=== PATIENT | female | born 1950 | race Caucasian/White ===

== ENCOUNTER 2018-09-26 19:01 | Inpatient (IN) | payer OTHER ==
[~2018-09-26] VITALS: Ht 162.6 cm; Wt 72.1 kg
[2018-09-26 20:04] LABS: Basophils # (auto) 0.1 uL; Basophils % (auto) 0.7 % (0.0-2.0); Eosinophils # (auto) 0 uL; Eosinophils % (auto) 0.5 % (0.0-7.0); Hemoglobin 11.6 g/dL (12.2-16.2); Lymphocytes # (auto) 1.6 uL; Lymphocytes % (auto) 19.2 % (10.0-50.0); Mean Corpuscular Hemoglobin 27.4 pg (28.0-32.0); Mean Corpuscular Hgb Conc. 32.3 g/dL (32.0-36.0); Mean Corpuscular Volume 84.7 fL (80.0-100.0); Monocytes # (auto) 0.9 uL; Monocytes % (auto) 10.9 % (0.0-12.0); Neutrophils # (auto) 5.6 uL; Neutrophils % (auto) 68.7 % (37.0-80.0); Platelet Count (auto) 350 10^3/uL (140-450); Red Blood Cells 4.25 10^6/uL (4.0-5.20); White Blood Cell 8.1 10^3/uL (4.4-10.8)
[2018-09-26 20:17] LABS: Albumin 3.5 g/dL (3.4-5.0); Blood Urea Nitrogen 18 mg/dL (7-18); Calcium 8.6 mg/dL (8.5-10.1); Carbon Dioxide 19 mmol/L (21-32); Chloride 107 mmol/L (98-107); Glucose 94 mg/dL (74-106); Magnesium 2.6 mg/dL (1.6-2.6); Potassium 4.5 mmol/L (3.5-5.1)
[2018-09-26 20:20] LABS: BUN/Creatinine Ratio 13.7; Blood Alcohol < 3.0 mg/dL (0-5); GFR African American 52 mL/min; GFR Non-African American 43 mL/min
[2018-09-26 20:26] LABS: Alanine Aminotransferase 19 U/L (13-56); Alkaline Phosphatase 62 U/L (45-117); Aspartate Aminotransferase 32 U/L (15-37); Bilirubin, Total 0.4 mg/dL (0.2-1.0); Total Protein 7.1 g/dL (6.4-8.2)
[2018-09-26 20:29] LABS: Anion Gap 15 (5-15); Sodium 141 mmol/L (136-145)
[2018-09-26] MEDS ORDERED: SODIUM CHLORIDE 0.9% 1,000 ML IV ONE (22:00)
[2018-09-26 22:30] LABS: Urine Bacteria FEW /hpf (None Seen); Urine Blood Negative /uL (Negative); Urine Mucus FEW (None Seen); Urine Specific Gravity 1.016 (1.001-1.035); Urine WBC 36 /hpf (0 - 5)
[2018-09-26 22:33] LABS: Alcohol, Urine < 3.0 mg/dL (0-5); Amphetamine Screen, Urine NEGATIVE (NEGATIVE); Barbiturate Scree,Urine NEGATIVE (NEGATIVE); Benzodiazephine Screen, Urine NEGATIVE (NEGATIVE); Cannabinoid Screen, Urine NEGATIVE (NEGATIVE); Cocaine Screen, Urine NEGATIVE (NEGATIVE); Opiate Scree,Urine NEGATIVE (NEGATIVE); Phencyclidine Screen, Urine NEGATIVE (NEGATIVE)
[2018-09-27] MEDS ORDERED: TEMAZEPAM 15 MG CAP PO PRN (04:15)
[2018-09-27] MEDS ORDERED: ACETAMINOPHEN 500 MG TAB PO PRN (04:15)
[2018-09-27] MEDS ORDERED: HYDROcodone-ACET 5/325MG TAB PO PRN (04:15)
[2018-09-27] MEDS ORDERED: ONDANSETRON HCL 4 MG/2 ML VIAL IV PRN (04:15)
[2018-09-27] MEDS ORDERED: LORazepam 0.5 MG TAB PO PRN (04:15)
[2018-09-27] MEDS ORDERED: SODIUM CHLORIDE 0.9% 1,000 ML IV ONE (04:15)
[2018-09-27 05:20] VITALS: BP 104/73
--- NOTE | 2018-09-27 05:20 | NUR ---
MS admit from [facility],BUD admitted to tele/MS after SBAR received. Patient oriented to MANOLO WEISS, RN primary RN, room 292 B, and unit policies regarding patient care and visiting hours. Patient confused, A&O to self. Was not able to obtain medical history, current home medication, or husbands contact information. To freely draining, hung below bladder, and free of kinks. Patient is able to follow commands and verbalize understanding. Patient weighed by bedscale and encouraged to call if they need something. All questions and concerns addressed, patient verbalized understanding. Note:
--- NOTE | 2018-09-27 05:30 | NUR ---
IV removal IV to left AC infiltrated and swollen. IV DC'd with clean sterile technique, catheter fully intact. Pressure dressing applied to site. Patient tolerated well.
--- NOTE | 2018-09-27 05:35 | NUR ---
IV insertion IV access obtained, via clean sterile technique by inserting 22 gauge catheter at RFA after 1 attempt. IV secured properly. No trauma to site. Patient tolerated well. NOTE:
[2018-09-27] MEDS: cefTRIAXone 1GM/50ML D5W 50 ML IV SCH (06:29)
--- NOTE | 2018-09-27 07:30 | NUR ---
RECEIVED REPORT FROM NIGHT NURSE. PATIENT RESTING IN BED, VERY CONFUSED, ALERT AND ORIENTED TO SELF.NO DISTRESS NOTED. WILL CONTINUE TO MONITOR.
[2018-09-27 07:43] LABS: Basophils # (auto) 0 uL; Basophils % (auto) 0.6 % (0.0-2.0); Eosinophils # (auto) 0 uL; Eosinophils % (auto) 0.7 % (0.0-7.0); Hematocrit 34.6 % (36.0-46.0); Hemoglobin 11.2 g/dL (12.2-16.2); Lymphocytes % (auto) 17.7 % (10.0-50.0); Mean Corpuscular Hemoglobin 27.4 pg (28.0-32.0); Mean Corpuscular Hgb Conc. 32.4 g/dL (32.0-36.0); Mean Corpuscular Volume 84.7 fL (80.0-100.0); Monocytes # (auto) 0.7 uL; Monocytes % (auto) 12.9 % (0.0-12.0); Neutrophils # (auto) 3.7 uL; Neutrophils % (auto) 68.1 % (37.0-80.0); Platelet Count (auto) 308 10^3/uL (140-450); Red Blood Cells 4.09 10^6/uL (4.0-5.20); Red Cell Distribution Width 17.2 % (11.8-14.3); White Blood Cell 5.5 10^3/uL (4.4-10.8)
--- NOTE | 2018-09-27 07:47 | NUR ---
Closing note Endorsed care to day shift RN. Patient resting in bed, no s/s of SOB or distress noted.
[2018-09-27 08:24] LABS: BUN/Creatinine Ratio 27.1; Calcium 8.1 mg/dL (8.5-10.1); Potassium 4.2 mmol/L (3.5-5.1)
[2018-09-27 09:00] VITALS: BP 130/70
[2018-09-27] MEDS: PANTOPRAZOLE 40 MG TAB PO SCH (10:16)
--- NOTE | 2018-09-27 11:52 | NUR ---
PATIENT'S FRIEND CALLED THE NURSING STATION, CONFIRMED PATIENT'S REAL NAME OF EMMA MUÑOZ, AND NOT BUD VALENTINO. CALLED TO ADMISSIONS FOR NAME CHANGE IN COMPUTER. FRIEND CONFIRMED THAT PATIENT'S 'S NAME IS RAMIRO AND SHE WILL HAVE HIM CALL ME WITH MORE INFORMATION ABOUT THE PATIENT.
[2018-09-27 13:00] VITALS: BP 148/87
[2018-09-27 16:39] VITALS: BP 143/80
[2018-09-27] MEDS: SODIUM CHLORIDE 0.9% 1,000 ML IV SCH (18:51)
--- NOTE | 2018-09-27 19:40 | NUR ---
Opening Shift Note Assumed care of patient, awake and alert. No S/S of distress/SOB or pain. Patients is at the bedside. Requested that he bring in a list of patients home medications. (Sher) confirmed that intermittent confusion is patients baseline due to diagnosis of schizophrenia. Sher to return in the AM with a list of patients home medications. Instructed on POC and to call for assist PRN, will continue to monitor for changes Q1hr and PRN.
[2018-09-27 22:00] VITALS: BP 136/85
--- NOTE | 2018-09-27 22:30 | NUR ---
Patient continues to be confused. Oriented to self and place at this time. Patient reoriented to situation, and verbalizes understanding. To catheter is in place and draining to gravity. bag secured below the level of the bladder. 2250ml of yellow urine with foul odor emptied from To bag. Will continue to monitor for changes PRN.
[2018-09-28] MEDS: SODIUM CHLORIDE 0.9% 1,000 ML IV SCH ×4 (01:40→21:40)
--- NOTE | 2018-09-28 04:15 | NUR ---
REMARKETING REP REPORTS PATIENT FEELS SHE "IS GOING TO FAINT" Assessed patient, who is alert and oriented to self and place. Vital signs are WNL. Denies lightheadedness or dizziness. Patient is rambling and confused. States "I think I may have messed up my internal hardware, because I woke up here and don't remember how I got here". Patient reoriented to situation and verbalizes understanding. Patient denies any other needs at this time. Will continue to monitor patient for changes PRN.
[2018-09-28 05:00] VITALS: BP_SYST 116; BP_SYST 137; BP_DIAS 63; BP_DIAS 68
[2018-09-28] MEDS: cefTRIAXone 1GM/50ML D5W 50 ML IV SCH (05:30)
--- NOTE | 2018-09-28 07:30 | NUR ---
RECEIVED REPORT FROM NIGHT NURSE. PATIENT RESTING IN BED, NO DISTRESS NOTED. WILL CONTINUE TO MONITOR.
[2018-09-28] MEDS ORDERED: ATOR10TA PO (09:17)
[2018-09-28] MEDS ORDERED: TRAZ-220 PO (09:17)
[2018-09-28] MEDS ORDERED: OLAN10TA29 PO (09:17)
[2018-09-28] MEDS ORDERED: EMTR1TAB6 PO (09:17)
[2018-09-28] MEDS ORDERED: DOLU50TA PO (09:17)
[2018-09-28] MEDS ORDERED: MIRT1TAB38 PO (09:17)
--- NOTE | 2018-09-28 09:50 | NUR ---
MED REQ COMPLETED. RAMIRO AT BEDSIDE.
[2018-09-28 10:13] VITALS: BP 137/79
[2018-09-28] MEDS: PANTOPRAZOLE 40 MG TAB PO SCH (10:15)
--- NOTE | 2018-09-28 12:46 | NUR ---
HOME MEDICATIONS TAKEN DOWN TO PHARMACY.
[2018-09-28 13:00] VITALS: BP_SYST 118; BP_SYST 165; BP_DIAS 67
[2018-09-28 16:57] VITALS: BP 116/71
[2018-09-28] MEDS: EMTRICITABINE TENOFOVIR ALAFENAMIDE PO SCH (17:18)
--- NOTE | 2018-09-28 19:00 | NUR ---
OPENING SHIFT NOTE Assumed care of patient who is A&O x2. Currently on room air with no s/s of SOB or distress. Denies pain at this time. 20 gauge IV to left AC is intact and patent with NS infusing at 150ml/hr. To catheter is in place, secured to leg with collection bag below the level of the bladder. Draining to clear yellow urine to gravity. SCDs in place on BLE d/t immobility. is at the bedside, assisting patient in eating dinner. MD to be notified. Reports that the patient has difficulty swallowing and would benefit from a mechanical soft diet and assistance with meals. Bed is in low locked position with side rails up x2. Call turner is within reach. Encouraged patient to call for assistance when needed. Will continue to monitor PRN.
[2018-09-28 22:00] VITALS: BP 106/68
[2018-09-28] MEDS ORDERED: MIRTAZAPINE 30 MG TAB PO SCH (22:00)
[2018-09-28] MEDS ORDERED: ATORVASTATIN 20 MG TAB PO SCH (22:00)
[2018-09-28] MEDS ORDERED: traZODone HCL 50 MG TAB PO SCH (22:00)
--- NOTE | 2018-09-29 01:01 | NUR ---
ROUNDS Upon entering room, it was noted that patient's bed was saturated with urine. Era-care provided, linens and gown changed. To catheter assessed and 5ml NS added to balloon. Collection bag is below the level of the bladder and is drain clear yellow urine to gravity. Patient tolerates care well. skin is intact. Will continue to monitor To catheter for continued leakage.
[2018-09-29 05:00] VITALS: BP 126/69
[2018-09-29] MEDS: cefTRIAXone 1GM/50ML D5W 50 ML IV SCH (05:47)
[2018-09-29] MEDS: SODIUM CHLORIDE 0.9% 1,000 ML IV SCH ×2 (05:47→11:30)
--- NOTE | 2018-09-29 07:30 | NUR ---
RECEIVED REPORT FROM NIGHT NURSE. PATIENT RESTING IN BED, NO DISTRESS NOTED. BED ALARM ON. WILL CONTINUE TO MONITOR.
[2018-09-29 09:00] VITALS: BP 142/76
[2018-09-29] MEDS ORDERED: OLANZapine 5 MG TAB PO SCH (10:00)
[2018-09-29] MEDS: PANTOPRAZOLE 40 MG TAB PO SCH (10:57)
[2018-09-29] MEDS: EMTRICITABINE TENOFOVIR ALAFENAMIDE PO SCH (10:59)
--- NOTE | 2018-09-29 12:07 | NUR ---
I called Dr. Monica Joshi to discuss the plan of care for this patient-he has not seen her yet and will decide transfer vs d/c home.
--- NOTE | 2018-09-29 12:10 | NUR ---
I faxed updated clinical information to [facility] including MD progress notes, vitals, xrays, medication list and labs. I also spoke with [facility] Biologist Aide Anju [phone] to give her a verbal update on the status of the patient.
[2018-09-29 13:00] VITALS: BP 114/49
--- NOTE | 2018-09-29 13:38 | NUR ---
Arnett catheter dc'd Order to discontinue arnett catheter. Arnett dc'd with clean technique following deflation of balloon. Patient tolerated well with no complaints of pain. Continue care.
--- NOTE | 2018-09-29 15:00 | NUR ---
PATIENT AMBULATED TO THE BATHROOM AND URINATED.
[2018-09-29 16:45] VITALS: BP 123/80
--- NOTE | 2018-09-29 18:22 | NUR ---
Discharge instructions given as ordered. Encourage to follow up with PMD as instructed. All questions and concerns addressed. Patient verbalized understanding. Medication reconciliation form completed and copy given to patient. Home medications held in Pharmacy returned to patient, and needed vaccines given. IV removed with catheter intact, pressure dressing applied, arnett catheter removed. Patient taken to vehicle via wheelchair with all personal belongings, accompanied by staff and family member. No distress noted at time of departure.
== END 2018-09-29 18:22 | disposition home or self-care (01) | DRG 871 ==
LOC: EDBD 19:01 → ER 19:04 → OVERFLOW 19:05 → WEST WING 09-27 05:35
PROVIDERS: ADMIT Nurse Practitioner Family; ATTEND Family Medicine
DX: A41.9 Sepsis, unspecified organism (principal); G93.41 Metabolic encephalopathy; N39.0 Urinary tract infection, site not specified; N18.9 Chronic kidney disease, unspecified; D63.8 Anemia in other chronic diseases classified elsewhere; E86.0 Dehydration; F02.80 Dementia in other diseases classified elsewhere, unspecified severity, without behavioral disturbance, psychotic disturbance, mood disturbance, and anxiety; G30.0 Alzheimer's disease with early onset; Z86.718 Personal history of other venous thrombosis and embolism
CPT/HCPCS: 36415; 70450; 71045; 80048; 80053; 80307; 80320; 81001; 82140; 82962; 83605; 83735; 83880; 84484; 85025; 85379; 87040; 87086; 93005; 96360; G0378; J0696